=== PATIENT | female | born 1990 | race African-American/Black ===

== ENCOUNTER 2018-07-02 20:35 | Emergency (ER) | payer MEDICAID ==
[~2018-07-02] VITALS: Ht 154.9 cm; Wt 61.8 kg
[2018-07-03 00:48] LABS: BASOPHILS % 0.4 % (0.0-2.0); HEMATOCRIT. 38.4 % (36.0-48.0); HEMOGLOBIN. 13.2 g/dL (12.0-16.0); LYMPHOCYTES % 32.7 % (20.0-50.0); MEAN CORPUSCULAR HEMOGLOBIN 32.3 pg (28.0-32.0); MEAN CORPUSCULAR VOLUME 93.8 fL (81.0-99.0); MEAN PLATELET VOLUME 8.6 fl (7.4-10.4); MONOCYTES % 7.2 % (2.0-8.0); NEUTROPHILS % 57.7 % (40.0-76.0); PLATELET 239 x1000/uL (130-400); RED CELL DISTRIBUTION WIDTH 12.6 % (11.6-14.6)
[2018-07-03 00:50] LABS: CHLORIDE 104 mEq/L (98-107)
[2018-07-03 01:01] LABS: CLARITY URINE CLEAR (CLEAR); COLOR URINE YELLOW (YELLOW); KETONES URINE NEGATIVE (NEGATIVE); LEUKOCYTE ESTERASE URINE NEGATIVE (NEGATIVE); NITRITE URINE NEGATIVE (NEGATIVE); OCCULT BLOOD URINE 2+ (NEGATIVE); PH URINE 5.5 (4.5-8.0); PROTEIN URINE NEGATIVE (NEGATIVE); SPECIFIC GRAVITY URINE 1.015 (1.005-1.030); UROBILINOGEN URINE 0.2 E.U./dL (0.2-1.0)
[2018-07-03 01:13] LABS: B-HCG QUANTITATIVE 58470 mIU/mL (<3)
[2018-07-03 03:47] VITALS: BP 97/56
== END 2018-07-03 03:40 | disposition home or self-care (01) ==
LOC: ER 07-03 01:12
DX: O26.891 Other specified pregnancy related conditions, first trimester (principal); O20.0 Threatened abortion; O23.41 Unspecified infection of urinary tract in pregnancy, first trimester; Z3A.09 9 weeks gestation of pregnancy
CPT/HCPCS: 36415; 76801; 80048; 81003; 84702; 85025; 86850; 86900; 99285

== ENCOUNTER 2018-09-13 21:33 | Inpatient (IN) | payer OTHER ==
[~2018-09-13] VITALS: Ht 152.4 cm; Wt 59.0 kg
[2018-09-13] MEDS ORDERED: ASPI-1159 MT (22:16)
[2018-09-13] MEDS ORDERED: PREN1TAB78 MT (22:16)
[2018-09-13] MEDS ORDERED: FOLI0.4T2 MT (22:16)
[2018-09-13] MEDS: LACTATED RINGERS 1,000 ML IV SCH (23:10)
[2018-09-14] MEDS ORDERED: METHYLERGONOVINE MALEATE 0.2 MG/ML IM PRN (00:45)
[2018-09-14] MEDS ORDERED: BUTORPHANOL TARTRATE 2 MG/ML VIAL IV PRN (00:45)
[2018-09-14 01:04] LABS: BASOPHILS % 0.7 % (0.0-2.0); EOSINOPHILS % 1.3 % (0.0-5.0); HEMOGLOBIN. 10.9 g/dL (12.0-16.0); MEAN CORPUSCULAR HEMOGLOBIN 33.2 pg (28.0-32.0); MEAN CORPUSCULAR VOLUME 97.2 fL (81.0-99.0); MEAN PLATELET VOLUME 9.1 fl (7.4-10.4); MONOCYTES % 5.5 % (2.0-8.0); NEUTROPHILS % 60.5 % (40.0-76.0); PLATELET 183 x1000/uL (130-400); RED BLOOD CELL COUNT 3.29 mill/uL (4.2-5.4); RED CELL DISTRIBUTION WIDTH 13.3 % (11.6-14.6)
[2018-09-14] MEDS: LACTATED RINGERS 1,000 ML IV SCH (01:29)
[2018-09-14 01:40] LABS: PARTIAL THROMBOPLASTIN TIME 27.5 sec (23.4-31.0); PROTHROMBIN TIME 9.6 sec (9.1-11.1)
[2018-09-14 01:54] LABS: HEPATITIS B SURFACE ANTIGEN NEGATIVE
[2018-09-14] MEDS: DEXT 5%/LR + PITOCIN 20UNITS/L 1,000 ML IV SCH ×5 (04:19→23:24)
[2018-09-14] MEDS ORDERED: MISOPROSTOL 200MCG TABLET PO SCH (06:45)
[2018-09-14] MEDS ORDERED: ACETAMINOPHEN WITH CODEINE 300/30MG TABLET PO PRN (08:15)
[2018-09-14] MEDS ORDERED: RHO(D) IMMUNE GLOBULIN 300 MCG/SYR IM PRN (08:15)
[2018-09-14] MEDS ORDERED: IBUPROFEN 800MG TABLET PO PRN (08:15)
[2018-09-14] MEDS ORDERED: IBUPROFEN 400MG TABLET PO PRN (08:15)
[2018-09-14 11:30] VITALS: BP 104/59
[2018-09-14 12:00] VITALS: BP 104/59
[2018-09-14 16:00] VITALS: BP 96/54
[2018-09-14 20:00] VITALS: BP 114/65
[2018-09-15] VITALS: BP 92/55
[2018-09-15 04:00] VITALS: BP 98/58
[2018-09-15 07:35] LABS: HEMATOCRIT 23.3 % (36.0-48.0)
[2018-09-15 08:00] VITALS: BP 89/50
[2018-09-15] MEDS ORDERED: PRENATAL VIT/FE FUMARATE/FA TABLET PO SCH (09:00)
[2018-09-15 09:27] VITALS: BP 89/52
[2018-09-15] MEDS: DEXT 5%/LR + PITOCIN 20UNITS/L 1,000 ML IV SCH (09:28)
[2018-09-15 12:00] VITALS: BP 95/58
[2018-09-15] MEDS ORDERED: FERROUS SULFATE 325MG TABLET PO SCH (12:10)
== END 2018-09-15 13:57 | disposition home or self-care (01) | DRG 560 ==
LOC: OBSVTOIN 21:33 → L&D 21:33 → 6EST 09-14 11:10
PROVIDERS: ADMIT Specialist; ATTEND Specialist
PROC: 10E0XZZ Delivery of Products of Conception, External Approach (ICD-10-PCS; principal; 2018-09-15)
DX: O03.9 Complete or unspecified spontaneous abortion without complication (principal); D57.3 Sickle-cell trait; O99.012 Anemia complicating pregnancy, second trimester; Z3A.20 20 weeks gestation of pregnancy; Z82.49 Family history of ischemic heart disease and other diseases of the circulatory system; Z83.3 Family history of diabetes mellitus
CPT/HCPCS: 36415; 76805; 76818; 85014; 85018; 86592; 86703; 86762; 86850; 86900; 87340; G0378; J0595; J2590; J7120

== ENCOUNTER 2019-03-11 08:50 | Emergency (ER) | payer OTHER ==
[~2019-03-11] VITALS: Ht 152.4 cm; Wt 64.0 kg
[~2019-03-11 08:50] MED LIST: ASPI-1159 MT; FOLI0.4T2 MT; PREN1TAB78 MT
[2019-03-11 10:34] LABS: BASOPHILS % 0.9 % (0.0-2.0); EOSINOPHILS % 1.5 % (0.0-5.0); HEMOGLOBIN. 12.6 g/dL (12.0-16.0); LYMPHOCYTES % 21.6 % (20.0-50.0); MEAN CORPUSCULAR HEMOGLOBIN 32.2 pg (28.0-32.0); MEAN CORPUSCULAR VOLUME 94.7 fL (81.0-99.0); MEAN PLATELET VOLUME 8.2 fl (7.4-10.4); MONOCYTES % 4.5 % (2.0-8.0); NEUTROPHILS % 71.5 % (40.0-76.0); PLATELET 228 x1000/uL (130-400); RED CELL DISTRIBUTION WIDTH 12.7 % (11.6-14.6)
[2019-03-11 10:40] LABS: CHLORIDE 108 mEq/L (98-107)
[2019-03-11 10:50] LABS: CLARITY URINE CLOUDY (CLEAR); COLOR URINE YELLOW (YELLOW); KETONES URINE NEGATIVE (NEGATIVE); LEUKOCYTE ESTERASE URINE 2+ (NEGATIVE); NITRITE URINE NEGATIVE (NEGATIVE); OCCULT BLOOD URINE 3+ (NEGATIVE); PROTEIN URINE NEGATIVE (NEGATIVE); SPECIFIC GRAVITY URINE 1.014 (1.005-1.030); UROBILINOGEN URINE 0.2 E.U./dL (0.2-1.0)
[2019-03-11 11:03] LABS: B-HCG QUANTITATIVE 89569 mIU/mL (<3)
[2019-03-11 12:50] VITALS: BP 103/64
== END 2019-03-11 13:40 | disposition home or self-care (01) ==
LOC: ER 08:50
DX: O20.0 Threatened abortion (principal); O23.31 Infections of other parts of urinary tract in pregnancy, first trimester; Z3A.09 9 weeks gestation of pregnancy; Z79.82 Long term (current) use of aspirin
CPT/HCPCS: 36415; 76801; 81025; 84702; 86850; 86900; 99284

== ENCOUNTER 2019-10-01 12:45 | Observation (INO) | payer OTHER ==
[~2019-10-01] VITALS: Ht 154.9 cm; Wt 68.5 kg
[~2019-10-01 12:45] MED LIST changes: -ASPI-1159 MT; +ASPI-1497 MT
[2019-10-12] MEDS ORDERED: MULT1TAB67 MT (05:37)
[2019-10-12] MEDS ORDERED: IBUP-2030 MT (05:37)
[2019-10-12] MEDS ORDERED: FERR325T6 MT (05:37)
== END 2019-10-01 17:50 | disposition home or self-care (01) ==
LOC: 8 EST LDRP 12:45
PROVIDERS: ADMIT Specialist; ATTEND Specialist
DX: Z34.83 Encounter for supervision of other normal pregnancy, third trimester (principal); Z3A.37 37 weeks gestation of pregnancy
CPT/HCPCS: 59025; 76805; 76818; 99281; G0378

== ENCOUNTER 2021-11-09 13:01 | Inpatient (IN) | payer OTHER ==
[~2021-11-09] VITALS: Ht 154.9 cm; Wt 79.8 kg
[~2021-11-09 13:01] MED LIST changes: -ASPI-1497 MT; +FERR325T6 MT; -FOLI0.4T2 MT; +FOLI0.4T6 MT; +IBUP-2030 MT; +MULT-622 MT
[2021-11-09] MEDS ORDERED: METHYLERGONOVINE MALEATE 0.2 MG/ML IM PRN (17:00)
[2021-11-09] MEDS ORDERED: NALOXONE HCL 0.4 MG/ML 1ML VIAL IM PRN (17:00)
[2021-11-09] MEDS ORDERED: CARBOPROST TROMETHAMINE 250 MCG/ML AMPUL IM PRN (17:00)
[2021-11-09] MEDS ORDERED: INFLUENZA VACCINE 05/PF 0.5 ML SYRINGE IM ONE (17:30)
[2021-11-09] MEDS: LACTATED RINGERS 1,000 ML IV SCH ×2 (17:42→18:21)
[2021-11-09 18:03] LABS: CLARITY URINE CLEAR (CLEAR); COLOR URINE YELLOW (YELLOW); KETONES URINE 2+ (NEGATIVE); LEUKOCYTE ESTERASE URINE NEGATIVE (NEGATIVE); NITRITE URINE NEGATIVE (NEGATIVE); OCCULT BLOOD URINE NEGATIVE (NEGATIVE); PROTEIN URINE NEGATIVE (NEGATIVE); UROBILINOGEN URINE 0.2 E.U./dL (0.2-1.0)
[2021-11-09 18:05] LABS: BASOPHILS % 0.4 % (0.0-2.0); EOSINOPHILS % 0.4 % (0.0-5.0); HEMATOCRIT. 35.9 % (36.0-48.0); HEMOGLOBIN. 11.9 g/dL (12.0-16.0); LYMPHOCYTES % 21.9 % (20.0-50.0); MEAN CORPUSCULAR HEMOGLOBIN 32.1 pg (28.0-32.0); MEAN CORPUSCULAR VOLUME 96.7 fL (81.0-99.0); MEAN PLATELET VOLUME 9.3 fl (7.4-10.4); NEUTROPHILS % 71.3 % (40.0-76.0); PLATELET 140 x1000/uL (130-400); RED BLOOD CELL COUNT 3.72 mill/uL (4.2-5.4); RED CELL DISTRIBUTION WIDTH 13.9 % (11.6-14.6)
[2021-11-09 18:18] LABS: *COCAINE SCREEN URINE NEGATIVE (NEGATIVE)
[2021-11-09 18:19] LABS: *AMPHETAMINES SCREEN URINE NEGATIVE (NEGATIVE); *BARBITURATES SCREEN URINE NEGATIVE (NEGATIVE); *BENZODIAZEPINES SCREEN URINE NEGATIVE (NEGATIVE); CANNABINOID URINE SCREEN NEGATIVE (NEGATIVE); METHADONE URINE SCREEN NEGATIVE (NEGATIVE); OPIATES URINE SCREEN NEGATIVE (NEGATIVE); PHENCYCLIDINE URINE SCREEN NEGATIVE (NEGATIVE)
[2021-11-09 18:22] LABS: INR 0.9
[2021-11-09] MEDS ORDERED: CITRIC ACID/SODIUM CITRATE SOLN 30ML UDC PO SCH (18:30)
[2021-11-09] MEDS ORDERED: MORPHINE SULFATE/PF 1MG/ML 10ML AMP ONE (18:38)
[2021-11-09] MEDS ORDERED: DEXAMETHASONE 4MG/ML 1ML VIAL ONE (18:38)
[2021-11-09] MEDS ORDERED: KETOROLAC 60MG/2ML VIAL IM ONE (18:38)
[2021-11-09] MEDS ORDERED: SODIUM CHLORIDE 0.9% 10ML VIAL ONE (18:38)
[2021-11-09] MEDS ORDERED: CEFAZOLIN SODIUM 1000MG/VIAL ONE ×2 (18:38→19:03)
[2021-11-09] MEDS ORDERED: EPHEDRINE SULFATE 50MG/ML VIAL ONE (18:38)
[2021-11-09] MEDS ORDERED: ONDANSETRON HCL 4MG/2ML INJ ONE (18:38)
[2021-11-09] MEDS ORDERED: OXYTOCIN 10 UNITS/ML 1ML ONE (18:39)
[2021-11-09 18:53] LABS: HEPATITIS B SURFACE ANTIGEN NEGATIVE
[2021-11-09] MEDS ORDERED: IBUPROFEN 400MG TABLET PO PRN (20:30)
[2021-11-09] MEDS ORDERED: BISACODYL 10MG SUPP PR PRN (20:30)
[2021-11-09] MEDS ORDERED: LANOLIN OINT 7GM TUBE TOP PRN (20:30)
[2021-11-09] MEDS ORDERED: IBUPROFEN 800MG TABLET PO PRN (20:30)
[2021-11-09] MEDS ORDERED: DIPHENHYDRAMINE 25MG CAPSULE PO PRN (20:30)
[2021-11-09] MEDS ORDERED: ONDANSETRON HCL 4MG/2ML INJ IV PRN (20:30)
[2021-11-09] MEDS ORDERED: DEXT 5%/LR + PITOCIN 20UNITS/L 1,000 ML IV SCH (20:30)
[2021-11-09] MEDS ORDERED: ONDANSETRON HCL 4MG/2ML INJ IM PRN (20:45)
[2021-11-09] MEDS ORDERED: DIPHENHYDRAMINE 50MG/ML VIAL IM PRN (20:45)
[2021-11-09] MEDS ORDERED: NALOXONE HCL 0.4 MG/ML 1ML VIAL IV PRN (20:45)
[2021-11-09 22:00] VITALS: BP 102/40
[2021-11-09] MEDS ORDERED: KETOROLAC 30MG/ML VIAL IV SCH (22:00)
[2021-11-09] MEDS ORDERED: BUTORPHANOL TARTRATE 2 MG/ML VIAL IV PRN (22:30)
[2021-11-09 23:30] VITALS: BP 105/55
[2021-11-10 04:00] VITALS: BP 99/55
[2021-11-10 06:29] LABS: HEMATOCRIT. 30.3 % (36.0-48.0); HEMOGLOBIN. 10.3 g/dL (12.0-16.0); MEAN CORPUSCULAR HEMOGLOBIN 32.2 pg (28.0-32.0); MEAN CORPUSCULAR VOLUME 94.9 fL (81.0-99.0); MEAN PLATELET VOLUME 9.2 fl (7.4-10.4); PLATELET 136 x1000/uL (130-400); RED BLOOD CELL COUNT 3.19 mill/uL (4.2-5.4); RED CELL DISTRIBUTION WIDTH 13.7 % (11.6-14.6)
[2021-11-10 07:41] VITALS: BP 96/65
[2021-11-10] MEDS ORDERED: TETANUS, DIPHTHERIA, PERTUSSIS VAC/PF 0.5ML (>10YR OLD) IM ONE (08:00)
[2021-11-10] MEDS: SIMETHICONE 80MG TABLET CHEW PO SCH ×4 (09:04→21:14)
[2021-11-10] MEDS: FERROUS SULFATE 325MG TABLET PO SCH ×3 (09:05→17:54)
[2021-11-10] MEDS: PRENATAL VIT/FE FUMARATE/FA TABLET PO SCH (09:05)
[2021-11-10] MEDS ORDERED: INFLUENZA VACCINE 05/PF 0.5 ML SYRINGE IM ONE (10:00)
[2021-11-10 16:14] VITALS: BP 98/52
[2021-11-10 18:53] LABS: PLATELET ESTIMATE NORMAL
[2021-11-10 19:30] VITALS: BP 102/59
[2021-11-10] MEDS: DOCUSATE SODIUM 100MG CAPSULE PO SCH (21:15)
[2021-11-11] MEDS: HYDROCODONE/ACETAMINOPHEN 5/325MG TABLET PO PRN ×4 (00:53→17:56)
[2021-11-11 04:00] VITALS: BP 100/72
[2021-11-11 08:36] VITALS: BP 106/73
[2021-11-11] MEDS: PRENATAL VIT/FE FUMARATE/FA TABLET PO SCH (08:59)
[2021-11-11] MEDS: FERROUS SULFATE 325MG TABLET PO SCH ×3 (08:59→17:55)
[2021-11-11] MEDS: SIMETHICONE 80MG TABLET CHEW PO SCH ×4 (08:59→20:40)
[2021-11-11 16:00] VITALS: BP 112/75
[2021-11-11 19:30] VITALS: BP 112/75
[2021-11-11] MEDS: DOCUSATE SODIUM 100MG CAPSULE PO SCH (20:40)
[2021-11-12] MEDS: HYDROCODONE/ACETAMINOPHEN 5/325MG TABLET PO PRN ×2 (03:18→12:00)
[2021-11-12 04:00] VITALS: BP 107/70
[2021-11-12 08:00] VITALS: BP 105/63
[2021-11-12 12:00] VITALS: BP 105/63
[2021-11-12] MEDS: SIMETHICONE 80MG TABLET CHEW PO SCH (12:00)
[2021-11-12] MEDS: PRENATAL VIT/FE FUMARATE/FA TABLET PO SCH (12:00)
== END 2021-11-12 15:03 | disposition home or self-care (01) | DRG 540 ==
LOC: 8 EST LDRP 13:01 → OBSVTOIN 13:01 → 8EST 23:00
PROVIDERS: ADMIT Specialist; ATTEND Specialist
PROC: 10D00Z1 Extraction of Products of Conception, Low, Open Approach (ICD-10-PCS; principal; 2021-11-09)
DX: O34.211 Maternal care for low transverse scar from previous cesarean delivery (principal); D57.3 Sickle-cell trait; O36.63X0 Maternal care for excessive fetal growth, third trimester, not applicable or unspecified; Z20.822 Contact with and (suspected) exposure to COVID-19; O99.02 Anemia complicating childbirth; Z37.0 Single live birth; Z3A.39 39 weeks gestation of pregnancy
CPT/HCPCS: 36415; 76805; 76818; 80305; 81003; 85025; 86592; 86703; 86762; 86850; 86900; 87340; 87426; 88307; 90686; 90715; 99281; J0595; J0690; J1100; J1200; J1885; J2274; J2405; J2590; J3490; J7120; Q0163; A4315

== ENCOUNTER 2022-12-07 15:57 | Emergency (ER) | payer OTHER ==
[~2022-12-07] VITALS: Ht 167.6 cm; Wt 89.0 kg
[~2022-12-07 15:57] MED LIST changes: -FOLI0.4T6 MT
[2022-12-07] MEDS ORDERED: ACETAMINOPHEN 325MG TABLET PO ONE (16:30)
[2022-12-07] MEDS ORDERED: IBUPROFEN 600MG TABLET PO ONE (16:30)
[2022-12-07] MEDS ORDERED: HYDROCODONE/ACETAMINOPHEN 5/325MG TABLET PO ONE (16:30)
[2022-12-07 16:56] VITALS: BP 100/70
[2022-12-07 17:04] LABS: BASOPHILS % 0.7 % (0.0-2.0); EOSINOPHILS % 1.1 % (0.0-5.0); HEMOGLOBIN. 11.3 g/dL (12.0-16.0); LYMPHOCYTES % 17.4 % (20.0-50.0); MEAN CORPUSCULAR HEMOGLOBIN 31.4 pg (28.0-32.0); MEAN CORPUSCULAR VOLUME 92.1 fL (81.0-99.0); MEAN PLATELET VOLUME 8.2 fl (7.4-10.4); MONOCYTES % 5.1 % (2.0-8.0); NEUTROPHILS % 75.7 % (40.0-76.0); PLATELET 256 x1000/uL (130-400); RED BLOOD CELL COUNT 3.58 mill/uL (4.2-5.4); RED CELL DISTRIBUTION WIDTH 13.4 % (11.6-14.6)
[2022-12-07 17:15] LABS: PROTHROMBIN TIME 10.4 sec (9.6-11.0)
[2022-12-07 17:35] LABS: CHLORIDE 110 mEq/L (98-107)
[2022-12-07 17:59] LABS: B-HCG QUANTITATIVE 1513 mIU/mL (<3)
[2022-12-07 18:54] LABS: CLARITY URINE TURBID (CLEAR); COLOR URINE RED (YELLOW); KETONES URINE NEGATIVE (NEGATIVE); LEUKOCYTE ESTERASE URINE 2+ (NEGATIVE); NITRITE URINE NEGATIVE (NEGATIVE); OCCULT BLOOD URINE 3+ (NEGATIVE); PROTEIN URINE 2+ (NEGATIVE); SPECIFIC GRAVITY URINE 1.017 (1.005-1.030); UROBILINOGEN URINE 0.2 E.U./dL (0.2-1.0)
== END 2022-12-07 19:28 | disposition home or self-care (01) ==
LOC: ER 15:57
DX: O03.4 Incomplete spontaneous abortion without complication (principal); Z88.6 Allergy status to analgesic agent
CPT/HCPCS: 36415; 76801; 80053; 81003; 84702; 85025; 86850; 86900; 99284